=== PATIENT | female | born 1990 | race Caucasian/White ===

== ENCOUNTER 2017-03-10 06:30 | Day surgery (SDC) | payer OTHER ==
[~2017-03-10 06:30] MED LIST: DIPRIVAN 200 MG/20 ML IV ONE; Versed 2 MG/2 ML Injection IV ONE
[2017-03-10] MEDS ORDERED: Lactated Ringers 1,000 ML IV ONE ×2 (06:52→09:31)
[2017-03-10] MEDS ORDERED: Lactated Ringers 1,000 ML IV SCH (07:00)
[2017-03-10 16:07] VITALS: O2SAT 98
[2017-03-10 16:08] VITALS: BP 105/54; PULSE 73
== END 2017-03-10 11:00 | disposition home or self-care (01) ==
LOC: SDC 06:30
PROVIDERS: ATTEND Surgery
PROC: 0DB68ZX Excision of Stomach, Via Natural or Artificial Opening Endoscopic, Diagnostic (ICD-10-PCS; principal; 2017-03-10)
PROC: 0DJD8ZZ Inspection of Lower Intestinal Tract, Via Natural or Artificial Opening Endoscopic (ICD-10-PCS; 2017-03-10)
DX: K29.70 Gastritis, unspecified, without bleeding (principal); K64.4 Residual hemorrhoidal skin tags; K21.9 Gastro-esophageal reflux disease without esophagitis; K62.5 Hemorrhage of anus and rectum
CPT/HCPCS: 00740; 00810; 36415; 84703; 88305; J2250; J2704